=== PATIENT | female | born 1990 ===

== ENCOUNTER 2021-04-23 05:22 | Inpatient (IN) | payer BC ==
[2021-04-23] MEDS ORDERED: Sodium Chloride 0.9% 10 ML Syringe FLUSH PRN (05:36)
[2021-04-23] MEDS ORDERED: Sodium Chloride 0.9% 20 ML SDV IV PRN (05:36)
[2021-04-23] MEDS ORDERED: Sodium Chloride 0.9% 2.5 ML Syringe FLUSH PRN (05:36)
[2021-04-23] MEDS ORDERED: Carboprost Tromethamine 250 MCG/1 ML Amp IM PRN (05:36)
[2021-04-23] MEDS ORDERED: Misoprostol 200 MCG Tab PO PRN (05:36)
[2021-04-23] MEDS ORDERED: Water For Irrigation,Sterile 1,000 ML Container IRR PRN (05:36)
[2021-04-23] MEDS ORDERED: Tranexamic Acid 1,000 MG in Sodium Chloride 0.9% 100 ML IV PRN (05:36)
[2021-04-23] MEDS ORDERED: Methylergonovine 0.2 MG/1 ML Amp IM PRN (05:36)
[2021-04-23] MEDS ORDERED: Lidocaine 1% 50 ML MDV INJECT PRN (05:36)
[2021-04-23] MEDS ORDERED: Butorphanol 1 MG/ML SDV IVPUSH PRN (05:36)
[2021-04-23] MEDS ORDERED: Oxytocin/0.9 % Sodium Chloride 30 UNIT/500 ML BAG IV SCH (05:45)
[2021-04-23] MEDS ORDERED: Lactated Ringers 1,000 ML IV SCH (05:45)
[2021-04-23] MEDS ORDERED: Docusate Sodium 100 MG Cap PO PRN (14:47)
[2021-04-23] MEDS ORDERED: Lanolin 100% Cream 7 GM Tube TOP PRN (14:47)
[2021-04-23] MEDS ORDERED: Benzocaine/Menthol 20%-0.5% Spray 78 GM Cannister TOP PRN (14:47)
[2021-04-23] MEDS ORDERED: Bisacodyl 10 MG Supp RECTAL PRN (14:47)
[2021-04-23] MEDS ORDERED: Witch Hazel Medicated Pads 40/Jar TOP PRN (14:47)
[2021-04-23] MEDS ORDERED: oxyCODONE 5 MG Tab PO PRN (14:47)
[2021-04-23] MEDS: Acetaminophen 500 MG Tab PO PRN ×2 (15:17→21:04)
[2021-04-23] MEDS: Ibuprofen 800 MG Tab PO PRN ×2 (15:17→23:35)
[2021-04-25] MEDS: Acetaminophen 500 MG Tab PO PRN (08:37)
[2021-04-25] MEDS: Ibuprofen 800 MG Tab PO PRN (08:38)
== END 2021-04-25 15:45 | disposition home or self-care (01) | DRG 560 ==
LOC: MW.OBCHECK 05:22 → MW.OB 05:24 → MW.OBCHECK 05:36 → MW.OB 05:36 → OBSVTOIN 14:47 → MW.OB 21:07
PROVIDERS: ADMIT Obstetrics & Gynecology; ATTEND Obstetrics & Gynecology
PROC: 10E0XZZ Delivery of Products of Conception, External Approach (ICD-10-PCS; principal; 2021-04-23)
PROC: 10907ZC Drainage of Amniotic Fluid, Therapeutic from Products of Conception, Via Natural or Artificial Opening (ICD-10-PCS; 2021-04-23)
DX: O98.52 Other viral diseases complicating childbirth (principal); B00.9 Herpesviral infection, unspecified; Z3A.38 38 weeks gestation of pregnancy; Z37.0 Single live birth; Z20.822 Contact with and (suspected) exposure to COVID-19
CPT/HCPCS: 36415; 59025; 59409; 85014; 85018; 85027; 86592; 86850; 86900; 86901; A9270-GY; J2590; U0002